=== PATIENT | female | born 1965 | race Caucasian/White ===

== ENCOUNTER 2016-08-31 10:34 | Inpatient (IN) ==
--- NOTE | 2016-08-30 21:03 | Discharge Summary ---
<Bre Muñoz - Last Filed: 08/30/16 20:59> Date of Encounter: 09/01/16 - Discharge Diagnosis (1) Aseptic loosening of prosthetic hip Priority: Primary Status: Acute Qualifiers: Encounter type: initial encounter Qualified Code(s): T84.038A - Mechanical loosening of other internal prosthetic joint, initial encounter; Z96.649 - Presence of unspecified artificial hip joint (2) HTN (hypertension) Priority: Secondary Status: Chronic Qualifiers: Hypertension type: essential hypertension Qualified Code(s): I10 - Essential (primary) hypertension (3) HLD (hyperlipidemia) Priority: Secondary Status: Chronic Qualifiers: Hyperlipidemia type: unspecified Qualified Code(s): E78.5 - Hyperlipidemia , unspecified (4) COPD (chronic obstructive pulmonary disease) Priority: Secondary Status: Chronic Qualifiers: COPD type: unspecified COPD Qualified Code(s): J44.9 - Chronic obstructive pulmonary disease, unspecified (5) Tobacco use Priority: Secondary Status: Chronic - Discharge Medications Home Medications: Aspirin Enteric Coated [Aspirin EC] 325 mg PO DAILY #21 tablet.dr 08/30/16 [Rx] OxyCODONE Immed Rel [Roxicodone 5 MG] 5 - 10 mg PO Q6HR PRN #40 tablet 08/30/16 [Rx] Albuterol Sulfate [Albuterol Inhaler] 2 puff IH Q4HR PRN 08/31/16 [History] Calcium Carbonate [Calcium] 600 mg PO HS 08/31/16 [History] Citalopram [CeleXA] 20 mg PO HS 08/31/16 [History] Ergocalciferol (VITAMIN D2) [Vitamin D2] 50,000 unit PO TU 08/31/16 [History] Estradiol 0.5 mg PO HS 08/31/16 [History] Furosemide [Lasix] 40 mg PO BID 08/31/16 [History] Gabapentin [Neurontin] 800 mg PO TID 08/31/16 [History] Lidocaine Patch [Lidoderm 5% patch] 1 each TP DAILY 08/31/16 [History] Lisinopril/Hydrochlorothiazide [Zestoretic 10-12.5 mg Tablet] 1 each PO HS 08/31 [History] Lovastatin [Mevacor] 20 mg PO HS 08/31/16 [History] Mirtazapine [Remeron] 15 mg PO HS 08/31/16 [History] OxyCODONE/APAP 5/325 [Percocet 5/325 MG] 1 each PO Q8HR PRN 08/31/16 [History] Potassium Chloride [K-Tab ER] 20 meq PO DAILY 08/31/16 [History] Verapamil HCl 360 mg PO HS 08/31/16 [History] Allergies/Adverse Reactions: Allergies adhesive Allergy (Verified 08/31/16 11:09) See Comments rash ibuprofen Allergy (Verified 08/31/16 11:09) See Comments nausea vomiting morphine Allergy (Verified 08/31/16 11:09) See Comments nausea vomiting NSAIDS (Non-Steroidal Anti-Inflamma Allergy (Verified 08/31/16 11:09) See Comments nausea vomiting Primary care physician: Mel Cade MD - Patient Status Disposition: Home, Self-Care Condition: Good - Discharge Instructions Follow Up With: Mel Cade MD [Primary Care Provider] - - Hospital Course Hospital course: Ms. Palencia is a 50 year old female - Time Spent with Patient Total time spent providing and/or coordinating discharge services: <Thaddeus Rao - Last Filed: 09/01/16 06:24> Time of Encounter: 06:23 - Discharge Diagnosis (1) Aseptic loosening of prosthetic hip Priority: Primary Status: Acute Qualifiers: Encounter type: subsequent encounter Qualified Code(s): T84.038D - Mechanical loosening of other internal prosthetic joint, subsequent encounter; Z96.649 - Presence of unspecified artificial hip joint (2) COPD (chronic obstructive pulmonary disease) Priority: Secondary Status: Chronic Qualifiers: COPD type: unspecified COPD Qualified Code(s): J44.9 - Chronic obstructive pulmonary disease, unspecified (3) HLD (hyperlipidemia) Priority: Secondary Status: Chronic Qualifiers: Hyperlipidemia type: unspecified Qualified Code(s): E78.5 - Hyperlipidemia , unspecified (4) HTN (hypertension) Priority: Secondary Status: Chronic Qualifiers: Hypertension type: essential hypertension Qualified Code(s): I10 - Essential (primary) hypertension (5) Tobacco use Priority: Secondary Status: Chronic (6) Acute blood loss anemia Priority: Primary Status: Acute Primary care physician: Mel Cade MD - Patient Status Functional capacity at discharge: uses cane/walker Overall status at discharge: patient is progressing back to baseline - Hospital Course Hospital course: Ms. Palencia is a 50 year old female The patient had an uneventful postoperative course. They received antibiotics and physical therapy and were discharged in stable condition. There will follow -up in the office in 2 weeks. Aspirin DVT prophylaxis - Time Spent with Patient Total time spent providing and/or coordinating discharge services:
[2016-08-31] MEDS ORDERED: Famotidine 20 MG/2 ML VIAL IVP ONE (10:56)
[2016-08-31] MEDS ORDERED: *HR* Propofol 200 MG/20 ML VIAL IVP ONE (10:58)
[2016-08-31] MEDS ORDERED: *HR* Midazolam HCl 2 MG/2 ML VIAL ONE (10:58)
[2016-08-31] MEDS ORDERED: *HR* FentaNYL (PF) 100 MCG/2 ML VIAL ONE (10:58)
[2016-08-31] MEDS ORDERED: Lidocaine -MPF 2% 2 ML VIAL ONE (10:59)
[2016-08-31] MEDS ORDERED: Ringers Solution, Lactated 1,000 ML IVC SCH ×2 (11:00→15:20)
--- NOTE | 2016-08-31 11:14 | History & Physical Report ---
Date of Encounter: 08/31/16 Time of Encounter: 11:14 24 Hour HP Update - Instructions Instructions: If the History and Physical is less than 30 days old and was completed prior to A.M. admission and or procedure and has NOT been updated on calendar day of procedure please complete this update prior to performing procedure. - Update Patient reports changes in Medical Condition: No Changes in assessment/condition: No Changes in Medication: No Preop tests/diagnostics Reviewed: Yes Surgery Remains Indicated: Yes Consent for Planned Operative Procedure(s) Verified: Yes - Pre-Operative Checklist Preoperative Checklist Indicated: No Prophylactic Antibiotic Ordered: Yes Is VTE Prophylaxis Indicated?: Yes
[2016-08-31] MEDS ORDERED: CeFAZolin Pre 2,000 MG/100 ML 2,000 MG/100 ML BAG IVPB ONE (11:23)
[2016-08-31] MEDS ORDERED: Albuterol 2.5 MG/3 ML NEBULIZER IH ONE (11:43)
[2016-08-31] MEDS ORDERED: Albuterol 2.5 MG/3 ML NEBULIZER ONE (11:52)
--- NOTE | 2016-08-31 11:54 | Anesthesia Evaluation PreOp ---
Date of Encounter: 08/31/16 Time of Encounter: 11:50 - Past History Planned Operation: Rt THR Cardiac History: HTN, Hyperlipidemia, Other (Raynaud's) Pulmonary History: Smoker, Asthma, COPD TRAIN OPERATIONS MANAGER History: Denies Any Significant HX, Other (Chronic Back Pain...has spine stimulator Raynaud's) Other Medical History: Denies Any Significant HX Anesthesia History: No Prior Anesthetic Complications : No (Hysterectomy) Alcohol Use: none Drug use: none Medications and Allergies Aspirin Enteric Coated [Aspirin EC] 325 mg PO DAILY #21 tablet. 08/30/16 [Rx] OxyCODONE Immed Rel [Roxicodone 5 MG] 5 - 10 mg PO Q6HR PRN #40 tablet 08/30/16 [Rx] Albuterol Sulfate [Albuterol Inhaler] 2 puff IH Q4HR PRN 08/31/16 [History] Calcium Carbonate [Calcium] 600 mg PO 08/31/16 [History] Citalopram [CeleXA] 20 mg PO 08/31/16 [History] Ergocalciferol (VITAMIN D2) [Vitamin D2] 50,000 unit PO TU 08/31/16 [History] Estradiol 0.5 mg PO 08/31/16 [History] Furosemide [Lasix] 40 mg PO BID 08/31/16 [History] Gabapentin [Neurontin] 800 mg PO TID 08/31/16 [History] Lidocaine Patch [Lidoderm 5% patch] 1 each TP DAILY 08/31/16 [History] Lisinopril/Hydrochlorothiazide [Zestoretic 10-12.5 mg Tablet] 1 each PO HS 08/31 [History] Lovastatin [Mevacor] 20 mg PO 08/31/16 [History] Mirtazapine [Remeron] 15 mg PO 08/31/16 [History] OxyCODONE/APAP 5/325 [Percocet 5/325 MG] 1 each PO Q8HR PRN 08/31/16 [History] Potassium Chloride [K-Tab ER] 20 meq PO DAILY 08/31/16 [History] Verapamil HCl 360 mg PO 08/31/16 [History] Allergies adhesive Allergy (Verified 08/31/16 11:09) See Comments rash ibuprofen Allergy (Verified 08/31/16 11:09) See Comments nausea vomiting morphine Allergy (Verified 08/31/16 11:09) See Comments nausea vomiting NSAIDS (Non-Steroidal Anti-Inflamma Allergy (Verified 08/31/16 11:09) See Comments nausea vomiting - Meds/Allergy Pre-op Review Medications Reviewed: Yes Allergies Reviewed: Yes Beta Blockers on Current Med List: No Anesthesia Results - Labs Laboratory Tests 08/19/16 08/19/16 08/19/16 12:05 12:05 12:05 Hgb 13.4 Hct 39.8 Plt Count 290 PT 10.8 INR 1.0 APTT 32.0 Sodium 138 Potassium BUN 14 Creatinine 0.82 08/24/16 14:33 Hgb Hct Plt Count PT INR APTT Sodium Potassium 4.7 H BUN Creatinine Anesthesia Exam O2 Sat Height 1.6 m Height 1.6 m Weight 67.132 kg Weight 67.132 kg O2 Sat by Pulse Oximetry 96 Vital Signs Temp Pulse Resp BP Pulse Ox 97.6 F 63 18 126/73 96 08/31/16 10:53 08/31/16 10:53 08/31/16 10:53 08/31/16 10:53 08/31/16 10:53 Height: 5'3 Weight: 148 lbs NPO (# of Hours): MN - HEENT Pupil (Motor): Pupils equal, EOMI Mallampati: II Denture Type: Upper: Complete Oral Opening: Greater than 3 - TRAIN OPERATIONS MANAGER LOC: Oriented TRAIN OPERATIONS MANAGER Motor: Normal RUE, Normal LUE, Normal RLE, Normal LLE, Normal Face TRAIN OPERATIONS MANAGER Sensory: Normal: RUE, LUE, RLE, LLE, Face - Cardiac Rhythm: Regular Murmur: None JVD: No Carotid Bruit: No - Pulmonary Breath Sounds: bilateral Clear Respiratory Effort: Symmetrical Anesthesia Assess/Plan ASA Score: 3 (HTN COPD Asthma) Modified [place] Scale for Level of Consciousness: Cooperative, oriented, and tranquil Anesthetic Plan: General Monitoring Plan: Standard Monitors Recovery Plan: PACU (discussed GA, agrees to proceed)
[2016-08-31] MEDS ORDERED: Dexamethasone 4 MG/ML VIAL ONE (12:40)
[2016-08-31] MEDS ORDERED: Ondansetron 4 MG/2 ML VIAL ONE (12:40)
[2016-08-31] MEDS ORDERED: *HR* HYDROmorphone 2 MG/ML SYRINGE ONE ×2 (12:45→14:37)
[2016-08-31] MEDS ORDERED: *HR* Labetalol 20 MG/4 ML SYRINGE IVP PRN (12:48)
--- NOTE | 2016-08-31 13:16 | Orthopedic Operative Note ---
Date of procedure: 08/31/16 Pre-op diagnosis: Aseptic loosening right femoral stem Post-op diagnosis: same Procedure: Procedure: Right Revision femur of Total Hip Replacment Estimated blood loss: 200 cc Hardware: Shana: Conical distal stem 1 55 x 15, 23+0 cone body, 28+4 metal head, ADM 20/50 poly-insert Procedural Notes: Loose femoral stem. Operative procedure: The patient was brought to the operating room and placed on the operating room table. After general anesthesia was administered the patient was placed in the lateral decubitus position with the operative leg up. All pressure points were padded appropriately and the head was stabilized in the neutral position. The operative extremity was prepped and draped in the sterile surgical fashion patient received IV antibiotic prior to skin incision. A standard posterior approach is made to the operative hip, through the old incision. The incision was made through the skin and subcutaneous tissue hemostasis was obtained with Bovie cautery. Using careful sharp dissection the fascia was identified and incised patient had significant scar tissue within the posterior aspect. This was resected. Cultures were obtained at the level hip joint, normal joint fluid was encountered. Hip was brought into internal rotation. Soft tissue was removed from around the proximal femur. Osteotomes were used to disrupt the proximal portion between the femoral component and the patients proximal femur. The component was removed without incident. The femur was reamed distally up to a size 1 55 x 15, the stem was impacted in place. Trial reduction with a 23+0 cone body revealed the hip to be relocatable. The real 23 mm +0 cone body was impacted in place in 20 degrees of anteversion trial reduction revealed excellent stability with a +4 metal head with the appropriate poly-. The trials were removed and the real implants were impacted in place. The hip was reduced, patient had apparent equal leg lengths. The hip had excellent stability with forward flexion to 90 degrees adduction of 30 degrees and internal rotation of 60 degrees. The hip had no shuck. The hips after 2 minutes with a Betadine saline solution. It was irrigated out with 2 L of pulse irrigation. Fascia was closed with a running #2 PDS suture. The deep tissue was irrigated and closed deep with #1 PDS suture superficially with 0 PDS suture and skin was closed with Dermabond and skin roman. The patient was placed in a sterile dressing and abduction pillow. The patient was extubated and transferred to the recovery room in stable condition. Anesthesia: TESFAYEA Surgeon: Thaddeus Rao Senior Talent Acquisition Specialist: Bre Muñoz Condition: stable Disposition: PACU
[2016-08-31] MEDS ORDERED: Neostigmine Methylsulfate 3 MG/3 ML SYRINGE ONE (13:22)
[2016-08-31] MEDS: *HR* HYDROmorphone (PF) 1 MG/ML SYRINGE IVP PRN ×5 (13:50→17:25)
[2016-08-31 14:15] LABS: Hemoglobin 12.4 g/dL (11.5-15.4)
[2016-08-31] MEDS ORDERED: *HR* HYDROmorphone (PF) 1 MG/ML SYRINGE IVP PRN (14:25)
[2016-08-31] MEDS ORDERED: Ketorolac 30 MG/ML VIAL IVP ONE (14:30)
[2016-08-31] MEDS ORDERED: Acetaminophen IV 1,000 MG/100 ML INFUS..BTL IVPB ONE (14:31)
[2016-08-31] MEDS ORDERED: *HR* OxyCODONE Immed Rel 5 MG TABLET PO PRN (15:20)
[2016-08-31] MEDS ORDERED: Naloxone 0.4 MG/ML INJ IVP PRN (15:20)
[2016-08-31] MEDS ORDERED: Albuterol Neb 1.25 MG/3 ML VIAL IH ONE (15:20)
[2016-08-31] MEDS ORDERED: Acetaminophen 325 MG TABLET PO PRN (15:20)
[2016-08-31] MEDS ORDERED: MOM Conc 10 ML UD.LIQ PO PRN (15:20)
[2016-08-31] MEDS ORDERED: Ondansetron 4 MG/2 ML VIAL IVP PRN (15:20)
[2016-08-31] MEDS ORDERED: Temazepam 15 MG CAPSULE PO PRN (15:20)
[2016-08-31] MEDS ORDERED: Sennosides 8.6 MG TABLET PO PRN (15:20)
--- NOTE | 2016-08-31 15:32 | Anesthesia Evaluation Post Op ---
Date of Encounter: 08/31/16 Time of Encounter: 15:20 - Vital Signs Vital Signs: Vital Signs/O2 Sat/Glucose, Most Current Temp Pulse Resp BP Pulse Ox 08/31/16 15:23 93 L 08/31/16 14:59 98.4 F 76 18 111/65 95 08/31/16 14:51 76 20 112/68 94 L 08/31/16 14:41 98.7 F 71 20 110/68 96 08/31/16 14:31 74 20 122/72 98 08/31/16 14:21 78 22 132/72 96 08/31/16 14:11 97.6 F 77 24 119/82 97 08/31/16 14:01 77 20 120/84 98 08/31/16 13:51 78 22 114/87 98 08/31/16 13:46 75 20 120/81 98 08/31/16 13:41 98.7 F 78 14 139/77 100 08/31/16 12:14 97.6 F 63 18 126/73 96 - Lungs Lungs: Clear Ascult./Percussion - Airway Airway: Non-obstructed - Cardiovascular Regular Rate - Mental Status Mental Status: Alert & Oriented, Answers Appropriately - Pain Pain Scale: 0 - Nausea Vomiting Nausea Vomiting: Not Present - Hydration Hydration: Ice chips - Discharge PostOp Status: Transfer Patient to floor
[2016-08-31] MEDS: *HR* Enoxaparin 30 MG/0.3 ML SYRINGE SQ SCH (16:40)
[2016-08-31] MEDS: Ascorbic Acid 500 MG TABLET PO SCH (16:40)
[2016-08-31] MEDS: Gabapentin 400 MG CAPSULE PO SCH ×2 (16:40→20:42)
[2016-08-31] MEDS ORDERED: *HR* Enoxaparin 30 MG/0.3 ML SYRINGE SQ SCH (18:00)
[2016-08-31] MEDS: ceFAZolin 2,000 MG in D5% in Water 100 ML IVPB SCH (20:44)
[2016-08-31] MEDS: Furosemide 40 MG TABLET PO SCH (20:45)
[2016-08-31] MEDS ORDERED: Verapamil ER (24 HR) 180 MG TABLET.ER PO SCH (21:00)
[2016-08-31] MEDS ORDERED: Mirtazapine 15 MG TABLET PO SCH (21:00)
[2016-09-01] MEDS: *HR* OxyCODONE Immed Rel 5 MG TABLET PO PRN ×2 (01:40→08:57)
[2016-09-01] MEDS: ceFAZolin 2,000 MG in D5% in Water 100 ML IVPB SCH (03:59)
[2016-09-01] MEDS: *HR* Enoxaparin 30 MG/0.3 ML SYRINGE SQ SCH (05:08)
[2016-09-01] MEDS: *HR* HYDROmorphone (PF) 1 MG/ML SYRINGE IVP PRN (05:08)
[2016-09-01 05:19] LABS: Hematocrit 29.7 % (35.3-44.9)
[2016-09-01 05:33] LABS: BUN/Creatinine Ratio 15 (6-26); Blood Urea Nitrogen 12 mg/dL (7-20); Carbon Dioxide 23 mEq/L (19-29); Chloride 98 mEq/L (98-109); Glucose 137 mg/dL (70-99); Osmolality,Calculated 274 (280-300); Potassium 4.8 mEq/L (3.5-4.5); Sodium 131 mEq/L (136-145); eGFR For African Americans > 60 (> 60); eGFR For Non-African Americans > 60 (> 60)
--- NOTE | 2016-09-01 06:25 | Orthopedics Progress Note ---
Date of Encounter: 09/01/16 Time of Encounter: 06:24 - Assessment and Plan (1) Aseptic loosening of prosthetic hip Current Visit: Yes Status: Acute Qualifiers: Encounter type: subsequent encounter Qualified Code(s): T84.038D - Mechanical loosening of other internal prosthetic joint, subsequent encounter; Z96.649 - Presence of unspecified artificial hip joint (2) COPD (chronic obstructive pulmonary disease) Current Visit: Yes Status: Chronic Qualifiers: COPD type: unspecified COPD Qualified Code(s): J44.9 - Chronic obstructive pulmonary disease, unspecified (3) HLD (hyperlipidemia) Current Visit: Yes Status: Chronic Qualifiers: Hyperlipidemia type: unspecified Qualified Code(s): E78.5 - Hyperlipidemia , unspecified (4) HTN (hypertension) Current Visit: Yes Status: Chronic Qualifiers: Hypertension type: essential hypertension Qualified Code(s): I10 - Essential (primary) hypertension (5) Tobacco use Current Visit: Yes Status: Chronic (6) Acute blood loss anemia Current Visit: Yes Status: Acute Subjective Interval history: Patient was seen this morning doing well without complaints. Afebrile vital signs stable. Operative extremity: Neurovascularly intact Dressing clean dry and intact Calves nontender Assessment and plan: Continue with postoperative care Hematocrit 29.7 discharged today Objective Vital signs: Vital Signs Temp Pulse Resp BP Pulse Ox 09/01/16 04:00 97.8 F 62 18 123/71 97 09/01/16 00:00 97.7 F 76 16 103/70 93 L 08/31/16 20:23 97.8 F 75 16 106/70 94 L 08/31/16 19:15 97.7 F 81 14 98/54 95 08/31/16 17:42 74 16 108/68 96 08/31/16 17:14 97.8 F 74 16 108/68 96 08/31/16 16:37 97.3 F L 65 16 104/58 98 08/31/16 16:16 16 98 08/31/16 15:47 98.0 F 67 16 95/55 97 08/31/16 15:23 93 L 08/31/16 14:59 98.4 F 76 18 111/65 95 08/31/16 14:51 76 20 112/68 94 L 08/31/16 14:41 98.7 F 71 20 110/68 96 08/31/16 14:31 74 20 122/72 98 08/31/16 14:21 78 22 132/72 96 08/31/16 14:11 97.6 F 77 24 119/82 97 08/31/16 14:01 77 20 120/84 98 08/31/16 13:51 78 22 114/87 98 08/31/16 13:46 75 20 120/81 98 08/31/16 13:41 98.7 F 78 14 139/77 100 08/31/16 12:14 97.6 F 63 18 126/73 96 08/31/16 10:56 97.4 F L 79 16 97/63 93 L 08/31/16 10:53 97.6 F 63 18 126/73 96 Intake and Output 08/31/16 08/31/16 09/01/16 15:59 23:59 07:59 Intake Total 200 / 200 700 / 700 340 / 340 Output Total 200 / 200 350 / 350 300 / 300 Balance 0 / 0 350 / 350 40 / 40 Intake: IV Fluids 200 / 200 100 / 100 100 / 100 Ofirmev 1,000 mg In 100 100 / 100 ml @ 400 mls/hr IVPB ONCE ONE Rx#:[id number] Ancef 2,000 MG In 100 / 100 100 / 100 Dextrose 5% 100 ML @ 200 mls/hr IVPB Q8H JOSELINE Rx#: [id number] Ancef Premix 2,000 MG/100 100 / 100 ML 2,000 mg In 100 ml @ 200 mls/hr IVPB PREOP ONE Rx#:[id number] Oral 0 / 0 600 / 600 240 / 240 Output: Urine 350 / 350 300 / 300 Estimated Blood Loss 200 / 200 Other: # Voids 2 Weight 67.132 kg - Labs CBC & BMP: 09/01/16 04:58 09/01/16 04:58 Labs: Abnormal lab results Hgb 10.0 g/dL (11.5-15.4) L D 09/01/16 04:58 Hct 29.7 % (35.3-44.9) L 09/01/16 04:58 Sodium 131 mEq/L (136-145) L 09/01/16 04:58 Potassium 4.8 mEq/L (3.5-4.5) H 09/01/16 04:58 Glucose 137 mg/dL (70-99) H 09/01/16 04:58 Calculated Osmolality 274 (280-300) L 09/01/16 04:58 - VTE Documentation of Mechanical Device: Venous foot pump, device Consult Discharge Plan - Plan Referrals: Mel Cade MD [Primary Care Provider] -
[2016-09-01] MEDS: Furosemide 40 MG TABLET PO SCH (08:56)
[2016-09-01] MEDS: Gabapentin 400 MG CAPSULE PO SCH (08:57)
[2016-09-01] MEDS: Ascorbic Acid 500 MG TABLET PO SCH (08:57)
[2016-09-01] MEDS ORDERED: Multivit/Ca/Min/Fe/FA 1 TAB TABLET PO SCH (09:00)
--- NOTE | 2016-09-01 09:24 | Electrocardiograph Report ---
Test Date: 2016-08-31 Pat Name: MAGALIE TERRY Department: 106 Room: [facility] Gender: F [address] [address] Freight: STEPHEN : 1965 Requested By: Thaddeus Rao Order Number: [id number] Reading MD: Steven Daniels MD Measurements Intervals [place] Rate: 57 P: 0 VT: 366 QRS: 32 QRSD: 98 T: -29 QT: 438 QTc: 433 Interpretive Statements Sinus rhythm ST DEVIATION AND MODERATE T-WAVE ABNORMALITY, CONSIDER ANTERIOR ISCHEMIA Electronically Signed On 09-01-16 09:20:29 EST by Steven Daniels MD
[2016-09-01] MEDS ORDERED: FLU VACC QS2016-17 36MOS UP/PF 0.5 ML SYRINGE IM ONE (10:56)
[2016-09-01 11:10] VITALS: BP 117/70
== END 2016-09-01 11:23 | disposition home or self-care (01) | DRG 301 ==
LOC: SAMDAY 10:34 → 3NENU 15:41
PROVIDERS: ADMIT Orthopaedic Surgery; ATTEND Orthopaedic Surgery